=== PATIENT | male | born 1940 | race Caucasian/White ===

== ENCOUNTER 2016-12-09 10:21 | Observation (INO) | payer MEDICARE ==
[~2016-12-09] VITALS: Ht 172.7 cm; Wt 96.0 kg
[2016-12-09] VITALS (8 sets, daily range): BP systolic 119–146; BP diastolic 54–83; PULSE 53–62; RESP 16–26; O2SAT 97–100
[~2016-12-09 10:21] MED LIST: FLUT10SP NS
--- NOTE | 2016-12-09 10:23 | ED.REPORT ---
HPI-Trauma Minor / Fall Date of Service Dec 09, 2016 ED Provider: Dr. Hargrove The pt is a 76 y/o male with a hx of prostate cancer (s/p radiation; normal PCA3 since radiation) who presents to the ED via EMS due to confusion, onset an hour ago. When the EMS arrived, the pt had a syncopal episode with HR in 40s. He was given atropine en route. His blood sugar was in 140s. The pt was found by his lying on the couch with an occipital laceration. He told his that he was not feeling well and was confused. She went to the garage where he had been working and found a pool of blood. The pt could not recall today's events, including dressing in the morning or working in the garage. As per the , the pt was normal last night. However, he had complained of fatigue and went to bed earlier than usual. He had not reported headache at that time. In the ED, the pt reports confusion and is disoriented to place and time. He denies chest pain and abdominal pain. Nursing Notes Stated Complaint: HEAD INJURY Nursing Notes Reviewed: Yes Allergies: Coded Allergies: No Known Allergies (Verified Allergy, Unknown, 06/30/14) Miscellaneous Medications Fluticasone Furoate (Veramyst) 10 Gm Drake.susp 10 GM NS General Time Seen by MD: 10:25 Chief Complaint Other (confusion) Hx Obtained From: Spouse, Daughter, EMS Arrived By: Ambulance Onset Occurred: 1 - 4 hours ago Symptom Duration: Since onset Location: Head Quality: Painful Severity: Current: Mild Severity: Maximum: Mild Recent Healthcare: No recent doctor visit Similar Sx Previous: No Risk Factors )( TPA Administration/Criteria Stroke Thrombolytic Therapy : TPA Considered: No TPA Administered Intravenously: No, exclusion criteria NIH Stroke Scale Level of Consciousness: Not alert, arousable (1) Ask Month & Age: 0 questions right (2) Open/Close Eyes/Hand German Professor: Performs 1 task (1) Horizontal EO Movements: None (0) Visual Turner: No visual loss (0) Facial Palsy: Normal symmetry (0) Right Arm Motor Drift (10s): No drift 10 sec (0) Left Arm Motor Drift (10s): No drift 10 sec (0) Right Leg Motor Drift (5s): No drift 5 sec (0) Left Leg Motor Drift (5s): No drift 5 sec (0) Limb Ataxia FNF/Heel-Barron: Does not understand (0) Sensation (Arms/Legs/Face): No sensory loss (0) Language Aphasia: Can't ID materials (2) Dysarthria: Slurring intelligible (1) Extinction/Inattention: No exctinct/inattent (0) NIHSS Score: 7 Time NIHSS Performed: 10:40 Date NIHSS Performed: Dec 09, 2016 )( CVA Risk Stratification Age >60 Risk factors reviewed Past Medical History Past Medical History prostate cancer (s/p radiation) Past Surgical History none reported Smoking History Never Smoker Social History Alcohol Use: Denies alcohol use Drug Use: Denies drug use Other Social History: Good social support, Ambulatory Status Independent Review of Systems Reports: occipital laceration Neurologic: Reports: Confusion Complete sys rev & neg: except as marked. Cardiovascular: Denies: Chest pain GI: Denies: Abdominal pain Physical Exam Initial Vital Signs Vital Signs (First) Date Time Temp Pulse Resp B/P Pulse Ox O2 Delivery O2 Flow Rate FiO2 12/09/16 10:35 35 55 22 125/83 100 Room Air Initial VS: Reviewed Respiratory: Breath sounds normal, Clear to auscultation, No respiratory distress Cardiovascular: Regular rate & rhythm, Heart sounds normal, Intact distal pulses Abdomen / GI: Soft, Non-tender, No guarding, No rebound, No distention Extremities: Vascular intact, Neuro intact, No swelling, No tenderness Skin: Warm, Dry, No cyanosis Neurologic: Alert, Oriented, Nonfocal General/Constitutional: Awake, Alert Alertness: Positive: Confused Neck: No swelling Trauma - Neck Specific: Positive: Immobilized - C Collar Head / Eyes: Normocephalic, PERRL Hematoma to the left occiput with superficial looking laceration. Neurologic: No motor deficits, No sensory deficits Mental Status: Positive: Confused, Disoriented to place, Disoriented to time, Responds to painful stim, Responds to verbal stim Speech: Positive: Expressive aphasia (severe) moving all extremities. Interpretation & Diagnostics Lab Results Interpretation Result Diagram: 12/09/16 1045 12/09/16 1045 Test 12/09/16 10:45 White Blood Count 5.1th/mm3 (3.8-10.1) Red Blood Count 4.73mil/mm3 (4.40-5.80) Hemoglobin 14.6g/dL (13.8-17.2) Hematocrit 43.5% (41.0-50.0) Mean Corpuscular Volume 92.0fL (81-100) Mean Corpuscular Hemoglobin 30.9pg (27.0-35.0) Mean Corpuscular Hemoglobin Concent 33.6% (32.0-37.0) Red Cell Distribution Width 12.9% (12.3-15.4) Platelet Count 242bil/L (150-400) Neutrophils (%) (Auto) 54.7% (40-74) Lymphocytes (%) (Auto) 34.1% (14-46) Monocytes (%) (Auto) 7.3% (4-12) Eosinophils (%) (Auto) 2.9% (0-5) Basophils (%) (Auto) 0.8% (0-3) Prothrombin Time 10.6sec (8.1-12.5) Prothromb Time International Ratio 0.99ratio Activated Partial Thromboplast Time 24.7sec (22.8-33.0) Sodium Level 140mEq/L (134-144) Potassium Level 4.3mEq/L (3.5-5.2) Chloride Level 104mEq/L (97-108) Carbon Dioxide Level 22mmol/L (18-29) Blood Urea Nitrogen 13mg/dL (8-27) Creatinine 0.82mg/dL (0.76-1.27) Estimat Glomerular Filtration Rate 97mL/min (>59) Glucose Level 147mg/dL (60-99) Calcium Level 8.5mg/dL (8.5-10.1) Total Bilirubin 0.3mg/dL (0.0-1.2) Aspartate Amino Transf (AST/SGOT) 21U/L (0-50) Alanine Aminotransferase (ALT/SGPT) 25U/L (0-44) Alkaline Phosphatase 70U/L (25-160) Troponin T 0.010ug/L (0.0-0.011) Total Protein 6.0g/dL (6.4-8.4) Albumin 3.6g/dL (3.4-5.0) Triglycerides Level 242mg/dL (0-149) Cholesterol Level 237mg/dL (100-199) LDL Cholesterol, Calculated 145.600mg/dL (0-99) VLDL Cholesterol 48.400mg/dL HDL Cholesterol 43mg/dL (>39) Cholesterol/HDL Ratio 5.51 (0.0-4.4) Hold Zayas Top Tube Received (Received) Alcohols < 10mg/dL (0-10) ECG Interpretation ECG Interpretation: Normal sinus rhythm. Rate 55. Time: 11:03 Interpreted by: ED physician X-Ray Chest Interpretation Chest Xray Interpretation: IMPRESSION: Shallow inspiration causing bibasilar left greater than right atelectasis. Otherwise normal chest radiograph. Dictated by: Cory Stanton M.D. on 12/09/2016 at 10:53 Approved by: Cory Stanton M.D. on 12/09/2016 at 10:54 View: Portable, 1 view Interpretation / Wet Read by: Interpret - Radiologist CT Head Interpretation IMPRESSION: 1. No CT evidence of acute intracranial pathology. 2. Posterior scalp hematoma. Dictated by: Cory Stanton M.D. on 12/09/2016 at 11:16 Approved by: Cory Stanton M.D. on 12/09/2016 at 11:18 Study: Head CT no contrast Interpretation / Wet Read by: Interpret - Radiologist CT C-Spine Interpretation IMPRESSION: 1. No acute fractures or dislocations. 2. Lower cervical spine degenerative change. Dictated by: Cory Stanton M.D. on 12/09/2016 at 11:19 Approved by: Cory Stanton M.D. on 12/09/2016 at 11:21 Study type: CT no contrast Interpretation / Wet Read by: Interpret - Radiologist Procedures Laceration Management Laceration Management: 4 apolonia Time: 12:38 Procedure Performed by: ED physician Consent / Setup / Site Prep: Consent from spouse Location of Wound: Occiput Wound Length: 3 cm (Z-shaped laceration) Local Anesthesia: Lidocaine 1% Digital Block: No Debridement: None Foreign Body Explore / Removal: Explored for foreign body Post-Procedure / Complications: Antibiotic oint applied, Dressing applied, No complications, Condition improved, Tolerated procedure well, Patient stable Re-Eval/Medical Decision Med Decision/Clinical Course Patient presents with altered level of consciousness, last known normal last night before going to bed. He does have evidence of head injury and has an initial NH stroke scale of 7. Reportedly he also had a syncopal episode in the ambulance with a heart rate in the 40s and 1 mg of atropine. Patient continues to be amnestic to the days events however his speech has dramatically improved. Laceration to the back of the head was stapled. We will plan to admit the patient for the episode today. Unclear whether this was cardiogenic syncope, TIA, a CVA, or sequelae of head trauma or some other unknown known pathology. Re-Evaluation/Progress #1: Time of Eval: 10:35 Re-Evaluation/Progress Note: Talked to the pt's family. Discussed diagnosis and plan to admit. Pt's understands and agrees with the plan for admission. All questions addressed. Re-Evaluation/Progress #2: Time of Eval: 10:46 Re-Evaluation/Progress Note: Discussed the plan to not give the pt TPA. They understand and agree with the plan. All questions answered. Re-Evaluation/Progress #3: Time of Eval: 11:03 Patient Status: Condition improved Re-Evaluation/Progress Note: Rechecked pt. Discussed the lab and imaging results with the pt and his family. They understand. All questions answered. Consultation : Consulted With: Hospitalist Call Returned at: 12:19 Garment Folder: Will see patient, Agrees with eval, Agrees with plan, Accepts admit Counseled Regarding: Diagnosis, Lab results, Need for admission Discharge & Departure Impression: Primary Impression: Altered level of consciousness Additional Impression: Syncope Syncope type: unspecified Qualified Code: R55 - Syncope and collapse Disposition: ADMITTED TO HOSPITAL Referrals: All Rolon MD (PCP) Scribe Attestation Portions of this note were transcribed by Mackenzie Parry. I,, personally performed the history,physical exam and medical decision-making;I reviewed and confirmed the accuracy of the information in the transcribed note. Signed by Jude Ramos. 12/09/16 copies to: All Rolon MD, Timothy Smitha BARAJAS Dec 09, 2016 10:23 Mackenzie Parry Dec 09, 2016 10:40
[2016-12-09] MEDS ORDERED: 0.9% Sodium Chloride 1,000 ML IV ONE (10:32)
--- NOTE | 2016-12-09 10:55 | DRSVH ---
PROCEDURE: X-RAY CHEST ONE VIEW, PORTABLE ([id number]) INDICATIONS: ALOC, syncope TECHNIQUE: One view of the chest was acquired. COMPARISON: None. FINDINGS: Surgical changes and devices: None. Lungs and pleura: Shallow inspiration causes bibasilar left greater than right atelectasis. No defini te pleural effusions. No pneumothoraces. Mediastinum: Mediastinal contours appear normal. Heart size is normal. Bones and chest wall: No suspicious bony lesions. Overlying soft tissues appear unremarkable. IMPRESSION: Shallow inspiration causing bibasilar left greater than right atelectasis. Otherwise norm al chest radiograph. Dictated by: Cory Stanton M.D. on 12/09/2016 at 10:53 Approved by: Cory Stanton M.D. on 12/09/2016 at 10:54
--- NOTE | 2016-12-09 11:20 | DRSVH ---
PROCEDURE: CT BRAIN WITHOUT CONTRAST ([id number]) INDICATIONS: Stroke TECHNIQUE: Noncontrast 4.5 mm thick angled axial sections acquired from the foramen magnum to the vertex, with c oronal reformats. COMPARISON: None. FINDINGS: Image quality: Excellent. CSF spaces: Basal cisterns are patent. No extra-axial fluid collections. Ventricles are normal in size and shape. Brain: No midline shift. No intracranial masses or hemorrhage. Fam-white matter interface is norm al. Skull and face: Calvarium and visualized facial bones are intact, without suspicious lesions. Left posterior scalp hematoma. Sinuses: Maxillary sinus mucosal thickening otherwise visualized sinuses and mastoids are clear. IMPRESSION: 1. No CT evidence of acute intracranial pathology. 2. Posterior scalp hematoma. Dictated by: Cory Stanton M.D. on 12/09/2016 at 11:16 Approved by: Cory Stanton M.D. on 12/09/2016 at 11:18
--- NOTE | 2016-12-09 11:22 | DRSVH ---
PROCEDURE: CT CERVICAL SPINE WITHOUT CONTRAST ([id number]) INDICATIONS: Stroke TECHNIQUE: Noncontrast 3 mm thick sections acquired from the skull base to the T4 level. Sagittal and coronal r eformats were then constructed. For radiation dose reduction, the following was used: automated exp osure control, adjustment of mA and/or kV according to patient size. COMPARISON: None. FINDINGS: Image quality: Excellent. Bones: No fractures or dislocations. Intervertebral body disc height loss and osteophyte formation c onsistent with generative change greatest at C6-7. Visualized superior ribs are intact. Soft tissues: Prevertebral soft tissues are normal in thickness. No paravertebral hematomas. No ap ical pneumothoraces. IMPRESSION: 1. No acute fractures or dislocations. 2. Lower cervical spine degenerative change. Dictated by: Cory Stanton M.D. on 12/09/2016 at 11:19 Approved by: Cory Stanton M.D. on 12/09/2016 at 11:21
[2016-12-09 11:45] LABS: BASOPHILS % (AUTO) 0.8 % (0-3); EOSINOPHILS % (AUTO) 2.9 % (0-5); MONOCYTES % (AUTO) 7.3 % (4-12); Mean Corpuscular Hemoglobin 30.9 pg (27.0-35.0); NEUTROPHILS % (AUTO) 54.7 % (40-74); Platelet Count 242 bil/L (150-400)
[2016-12-09 11:47] LABS: INR 0.99 ratio
[2016-12-09] MEDS ORDERED: Ondansetron 2 mg/mL 2 mL Inj IVPUSH PRN (12:20)
--- NOTE | 2016-12-09 12:26 | NUR ---
Evaluation completed. Please go to "Notes" then click on "Assessments and Notes" (bottom left corner of screen). Then select appropriate discipline tab on top of screen.
[2016-12-09 12:53] LABS: APPEARANCE,URINE HAZY (CLEAR,HAZY); COLOR,URINE YELLOW (YELLOW); OCCULT BLOOD,URINE NEGATIVE (NEGATIVE); PH,URINE 8.5 (5.0-8.0); UROBILINOGEN,URINE NORMAL (NORMAL)
[2016-12-09] MEDS ORDERED: cefTRIAXone Inj 1,000 MG in Dextrose 5% Minibag Plus 50 ML IV ONE (12:55)
--- NOTE | 2016-12-09 14:04 | NUR ---
Admission Pt arrived to [facility] Rm 3027 from MRI via wheelchair. Alert to self and . VSS. IV saline locked. Pt able to transfer self from wheel chair to bed, gait is slightly unsteady. Pt has a laceration to the back of the head, that has been stapled. No complains of increased pain. Pt remains confused to what brought him to the hospital. and daughter at bedside assisting with admission questions.
[2016-12-09] MEDS ORDERED: cefTRIAXone Inj 2,000 MG in Dextrose 5% Minibag Plus 50 ML IV SCH (14:15)
--- NOTE | 2016-12-09 14:35 | DRSVH ---
PROCEDURE: MRI STROKE PROTOCOL ([id number]) Pre- and post-contrast brain MRI, non-contrast brain MR angiogram, pre- and postcontrast neck MR zelalem ogram INDICATIONS: r/o CVA TIA TECHNIQUE: Brain: Noncontrast axial T1 spin echo, axial T2 fast spin echo, sagittal and axial FLAIR, coronal T2 fast spin echo, axial gradient echo, axial diffusion and ADC through the brain. After the administr ation of contrast, axial 3D VIBE of the cranial vasculature and brain. Brain MRA: Non-contrast 3-D time of flight MR angiogram, with multiple sjrelbh-lejrvilej-wvujtiltxh (MIP) reformats performed. Neck MRA: Axial and sagittal TruFISP through the neck. Coronal dynamic MR angiogram during administ ration of contrast in the arterial and venous phases, with 3-dimenstional roppexm-kuounalpw-fuxmszriu n (MIP) reformats constructed from subtraction images. COMPARISON: [facility], CT, CT BRAIN WO CON, 12/09/2016, 10:51. FINDINGS: Image quality: Excellent. BRAIN: CSF spaces: Ventricles are normal in size and shape. Basal cisterns are patent. No extra-axial flu id collections. Brain: No intracranial bleeds or mass effects. Fam-white matter interface is normal. Diffusion we ighted images show no acute ischemic insults. Brainstem appears normal. Normal intravascular flow v oids are present. No abnormal intracranial enhancement. Skull and face: There is redemonstration a left posterior scalp hematoma. Calvarial marrow signal is normal. Orbits appear normal. Sinuses: There is minimal bilateral maxillary sinus mucosal thickening. The mastoid air cells appear clear. BRAIN MR ANGIOGRAM: Anterior circulation: Intracranial internal carotid arteries are normal in size and enhancement. Th e flow within the paired anterior cerebral arteries is normal and symmetric. The flow within the mid dle cerebral arteries is normal and symmetric. The anterior communicating artery is seen. No stenos es, occlusions, or aneurysms. Posterior circulation: The visualized portions of the vertebral arteries demonstrate normal caliber, and join to form a normal appearing basilar artery. The flow within the posterior cerebral arteries is normal and symmetric. No stenoses, occlusions, or aneurysms. NECK MR ANGIOGRAM: Carotids: Great vessels demonstrate a conventional anatomy as they arise from the aortic arch. The origins of the common carotid arteries appear patent. The calibers and courses of both common caroti d arteries are normal. The bifurcation regions appear normal bilaterally. The internal carotid yunior esther demonstrate normal course and caliber. Posterior circulation: The origins of the vertebral arteries appear patent. Diffuse narrowing of the right V4 segment however appears patent. The basilar artery appears unremarkable. Miscellaneous: Subclavian arteries appear patent. Pre-contrast images through the neck show no soft tissue abnormalities. IMPRESSION: BRAIN MRI: No evidence of acute ischemia. Left posterior scalp hematoma as before. Mild bilateral maxillary sinus mucosal thickening BRAIN MR ANGIOGRAM: Negative examination as above. NECK MR ANGIOGRAM: Mild diffuse narrowing of the right V4 segment, without focal stenosis or occlusio n. No ICA stenosis. The estimate of stenosis included in the report of the imaging study was calculated using the NASCET method Dictated by: He Sabillon M.D. on 12/09/2016 at 14:25 Approved by: He Sabillon M.D. on 12/09/2016 at 14:34
--- NOTE | 2016-12-09 15:02 | PCM.HPMED ---
Subjective Date of Service Dec 09, 2016 Primary Provider: Admitting Physician: Kyle Sinclair MD Primary Care Physician: Gian Attending Physician: Kyle Sinclair MD Chief Complaint: confusion, head trauma History of Present Illness: 76-year-old male with no past medical history except prostate cancer in 2012 averaging a geraldine states that post radiation therapy, recent PSA was normal by PCP presented after unknown head trauma, confusion. As per the family, patient was found on the sulfa with head laceration at the occipital area. Upon questioning patient was very confused, did not remember what exactly happened. Of note, there are pulls of blocked side of the garage, indicating that patient fell likely on the driveway. Patient does remember how and what happened. As per , patient complain of more fatigue yesterday, had to go to the bathroom 3 times overnight for urination which is normal for him. Patient otherwise was usual state of health, maintaining an active lifestyle, denied having any similar episode in the past. Patient is following primary doctor regularly. Last seen by PCP around August, there was no issues regarding his health, currently not taking any medicine including dkbw-[id number]-[id number] medicine. Of note, in route to the hospital, patient had bradycardic to the 40s, was given atropin by EMS ROS: Denied recent fever, chills, cough, sputum, urinary frequency, urgency, hematuria, abdominal pain, nausea, vomiting, diarrhea, constipation, sick contact, runny nose, travel ED VS blood pressure were stable 120s, charisse to 50s, afebrile, 100% on RA. Review of Systems: Pertinent positives as noted in history of present illness. All other systems were reviewed and are negative Allergies Coded Allergies: No Known Allergies (Verified Allergy, Unknown, 06/30/14) Home Medications Not taking any medicine PMH No past medical history except prostate cancer Surgical History No surgery Family History No family medical history premature , CAD Social History Hx Alcohol Use: Yes (rarely) Hx Substance Use: No Hx Tobacco Use: No Smoking Status: Never Smoker Additional Information lives with Exam Vital Signs Vital Sign - Last Date Time Temp Pulse Resp B/P Pulse Ox O2 Delivery O2 Flow Rate FiO2 12/09/16 11:52 53 26 129/64 99 Room Air 12/09/16 10:35 35 Exam NAD, comfortably laying down on the bed no JVD, MMM, no LAD RRR, nl s1, s2 no mrg CTAB, no w,c S,ND,NT,normoactive BS+ warm, no edema, pulses 2/2 Neuro:speech coherent, fluent, AAOx3 gait steady PERRLA, EOMI, symmetric face, no uvulae tongue deviation, able shrug shoulders equally able rotate neck equally on both sides FTN, dysdiadochokinesia intact, romberg negative, no pronator drift motor 5/5 throughout, sensory intact to dull touch Lab and Diagnostics Result Diagram: 12/09/16 1045 12/09/16 1045 X-Rays, CTs and MRIs PROCEDURE: CT BRAIN WITHOUT CONTRAST ([id number]) INDICATIONS: Stroke TECHNIQUE: Noncontrast 4.5 mm thick angled axial sections acquired from the foramen magnum to the vertex, with coronal reformats. COMPARISON: None. FINDINGS: Image quality: Excellent. CSF spaces: Basal cisterns are patent. No extra-axial fluid collections. Ventricles are normal in size and shape. Brain: No midline shift. No intracranial masses or hemorrhage. Fam-white matter interface is normal. Skull and face: Calvarium and visualized facial bones are intact, without suspicious lesions. Left posterior scalp hematoma. Sinuses: Maxillary sinus mucosal thickening otherwise visualized sinuses and mastoids are clear. IMPRESSION: 1. No CT evidence of acute intracranial pathology. 2. Posterior scalp hematoma. Dictated by: Cory Stanton M.D. on 12/09/2016 at 11:16 Approved by: Cory Stanton M.D. on 12/09/2016 at 11:18 PROCEDURE: MRI STROKE PROTOCOL ([id number]) Pre- and post-contrast brain MRI, non-contrast brain MR angiogram, pre- and postcontrast neck MR angiogram INDICATIONS: r/o CVA TIA TECHNIQUE: Brain: Noncontrast axial T1 spin echo, axial T2 fast spin echo, sagittal and axial FLAIR, coronal T2 fast spin echo, axial gradient echo, axial diffusion and ADC through the brain. After the administration of contrast, axial 3D VIBE of the cranial vasculature and brain. Brain MRA: Non-contrast 3-D time of flight MR angiogram, with multiple maximum- intensity-projection (MIP) reformats performed. Neck MRA: Axial and sagittal TruFISP through the neck. Coronal dynamic MR angiogram during administration of contrast in the arterial and venous phases, with 3-dimenstional plmdwgm-frpvwevxz-mwgcgfvbvw (MIP) reformats constructed from subtraction images. COMPARISON: [facility], CT, CT BRAIN WO CON, 12/09/2016, 10:51. FINDINGS: Image quality: Excellent. BRAIN: CSF spaces: Ventricles are normal in size and shape. Basal cisterns are patent. No extra-axial fluid collections. Brain: No intracranial bleeds or mass effects. Fam-white matter interface is normal. Diffusion weighted images show no acute ischemic insults. Brainstem appears normal. Normal intravascular flow voids are present. No abnormal intracranial enhancement. Skull and face: There is redemonstration a left posterior scalp hematoma. Calvarial marrow signal is normal. Orbits appear normal. Sinuses: There is minimal bilateral maxillary sinus mucosal thickening. The mastoid air cells appear clear. BRAIN MR ANGIOGRAM: Anterior circulation: Intracranial internal carotid arteries are normal in size and enhancement. The flow within the paired anterior cerebral arteries is normal and symmetric. The flow within the middle cerebral arteries is normal and symmetric. The anterior communicating artery is seen. No stenoses, occlusions, or aneurysms. Posterior circulation: The visualized portions of the vertebral arteries demonstrate normal caliber, and join to form a normal appearing basilar artery. The flow within the posterior cerebral arteries is normal and symmetric. No stenoses, occlusions, or aneurysms. NECK MR ANGIOGRAM: Carotids: Great vessels demonstrate a conventional anatomy as they arise from the aortic arch. The origins of the common carotid arteries appear patent. The calibers and courses of both common carotid arteries are normal. The bifurcation regions appear normal bilaterally. The internal carotid arteries demonstrate normal course and caliber. Posterior circulation: The origins of the vertebral arteries appear patent. Diffuse narrowing of the right V4 segment however appears patent. The basilar artery appears unremarkable. Miscellaneous: Subclavian arteries appear patent. Pre-contrast images through the neck show no soft tissue abnormalities. IMPRESSION: BRAIN MRI: No evidence of acute ischemia. Left posterior scalp hematoma as before. Mild bilateral maxillary sinus mucosal thickening BRAIN MR ANGIOGRAM: Negative examination as above. NECK MR ANGIOGRAM: Mild diffuse narrowing of the right V4 segment, without focal stenosis or occlusion. No ICA stenosis. The estimate of stenosis included in the report of the imaging study was calculated using the NASCET method Dictated by: He Sabillon M.D. on 12/09/2016 at 14:25 Approved by: He Sabillon M.D. on 12/09/2016 at 14:34 Assessment & Plan Acute, active Acute encephalopathy likely due to brain conccusion after head trauma, fall, initial CT head was normal for bleeding, NIHSS 7 per ED provider. MR stroke protocol was also unremarkable for stroke. Patient does not have any risk factor for TIA except his age. Simply her what the initial trigger made him fall, possible UTI given UA+, cardiac arrhythmias despite no cardiac disease. -Patient is mental status rapidly improved to his baseline, non focal on neurologic exam, still has transient amnesia regarding the event -Frequent neuro checks every 4 hours -awaits limited TTE, rule out valvular dz, LV function -hydrate with [id number] sinus bradycardia, POA, unclear etiology, currently asymptomatic, s/p atropin in EMS. EKG no av block, pauses. labs showed first trop neg -monitor on telemetry, awaits TTE probable UTI, POA, UA+, pt has baseline voiding difficulties, frequent urination s/p prostate CA radiotx -start CFX 2g qd, awaits UCX, monitor fever curve, wbc, pct Chronic, stable prostat CA s/p radiotx, stable, FU with Urology, PCP Dispo: Patient is admitted under observation status with expectation that she will be discharged within 24-48 hours, diet:general dvt ppx:SCD Full code Time spent 65 minutes Kyle Sinclair MD Dec 09, 2016 12:30
[2016-12-10 00:42] VITALS: BP 119/56; PULSE 58; RESP 16; O2SAT 97
[2016-12-10 05:32] VITALS: BP 133/77; PULSE 62; RESP 18; O2SAT 96
--- NOTE | 2016-12-10 06:34 | NUR ---
NOC/Assume of care Assume of care from previous RN. Pt has been alert and oriented. Pleasant and cooperative with care. Denies head pain. Ramsey dry and intact on left occipital area. Neuro VS noted no significant findings. Hourly rounding done.
[2016-12-10 06:46] VITALS: BP_SYST 122; BP_SYST 154; BP_SYST 161; BP_DIAS 69; BP_DIAS 88; BP_DIAS 89
[2016-12-10 07:40] VITALS: BP_SYST 125; BP_SYST 129; BP_SYST 144; BP_DIAS 64; BP_DIAS 68; BP_DIAS 79
[2016-12-10 07:41] LABS: Mean Corpuscular Volume 93.3 fL (81-100)
[2016-12-10 07:42] LABS: BASOPHILS % (AUTO) 0.3 % (0-3); EOSINOPHILS % (AUTO) 2.4 % (0-5); MONOCYTES % (AUTO) 10.8 % (4-12); Mean Corpuscular Hemoglobin 31.3 pg (27.0-35.0); NEUTROPHILS % (AUTO) 57.7 % (40-74); Platelet Count 215 bil/L (150-400)
--- NOTE | 2016-12-10 10:04 | NUR ---
Evaluation completed. Please go to "Notes" then click on "Assessments and Notes" (bottom left corner of screen). Then select appropriate discipline tab on top of screen.
[2016-12-10 10:14] VITALS: PULSE 61
--- NOTE | 2016-12-10 11:05 | NUR ---
Case Management: HINOJOSA and Medicare Part D pamphlet delivered and explained to patient and spouse at bedside. Signed original placed in chart. Copy left at bedside. Romina Huston RN
--- NOTE | 2016-12-10 11:54 | DRSVH ---
[facility] [address] [place] [address] Echocardiogram Report Name: VANNESSA SAUCEDO Date: 12/10/2016 Height: 68 in Hospital Exam Location: [facility] Weight: 21 2 lb Gender: Male BSA: 2.1 m2 : 1940 Age: 76 yrs BP: 129/79 mmHg Reason For Study: BRADYCARDIA/POSSIBLE CVA Ordering Physician: LUCILLE RUIZ Performed By: Aim Kumari Referring Physician: [facility] Interpret[facility] Summary The left ventricle is normal in size. The left ventricular ejection fraction is normal. The left atrium is moderately dilated. There is no Doppler evidence for an interatrial shunt. There is trace mitral regurgitation. Procedure: A two-dimensional transthoracic echocardiogram with color flow and Doppler was performed. There is no prior echocardiogram noted for this patient. The study quality was technically difficult. The patient was in sinus bradycardia with heart rates between 52 and 60 bpm during the exam. Left Ventricle: The left ventricle is normal in size. The left ventricular ejection fraction is normal. The ejection fraction is estimated to be 55-60%. There are no obvious focal wall motion abnormalities noted but poor endocardial definition reduces the sensitivity for the detection of such. Assessment of diastolic parameters indicates a relaxation abnormality of the left ventricle, consistent with normal filling pressures. Right Ventricle: The right ventricle is normal in size and function. Atria: The left atrium is moderately dilated. The right atrium is borderline dilated. There is no Doppler evidence for an interatrial shunt. Mitral Valve: The mitral valve is normal. There is trace mitral regurgitation. Aortic Valve: The aortic valve is trileaflet. The aortic valve is slightly calcified. There is mild aortic valve sclerosis. The aortic valve opens well. No aortic regurgitation is present. Tricuspid Valve: The tricuspid valve is normal. There is trace tricuspid regurgitation. The right ventricular systolic pressure is estimated at least 25 mmHg assuming a right atrial pressure of 3 mm Hg. Pulmonic Valve: The pulmonic valve leaflets are thin and pliable; valve motion is normal. There is trace pulmonic regurgitation. Great Vessels: The aortic root is normal size. The ascending aorta is mildly enlarged. The aortic arch is mildly enlarged. The pulmonary artery is not well visualized, but is probably normal size. The IVC is of normal diameter and collapses greater than 50% with a sniff. This suggests a low right atrial pressure of 3 mm Hg. Pericardium/ Pleura There is no pericardial effusion. There is no pleural effusion. MMode/2D Measurements & Calculations LVIDd: 4.8 cm RA long axis LVOT diam: 2.4 cm LVIDs: 3.2 cm LA A2 area: 24.6 cm AoV Opening FS: 34.1 % LA A4 area: 23.6 cm RA area EPSS: 0.30 cm LA length (vol) Ao root diam IVSd: 1.2 cm : 21.2 cm LVPWd: 0.89 cm LA vol: 100.4 ml RA vol asc Aorta Diam LA vol index : 68.0 ml RA Ao Arch Diam (Prox : 32.5 mm2 Trans): 3.4 cm IVC diam: 2.0 cm LV simpson. diameter/BSA LV sys. diameter/BSA (cm/m^2): 2.3 (cm/m^2): 1.5 Doppler Measurements & Calculations Ao V2 max MV E max rich MV E/A: 1.2 TR max rich : 114.8 cm/sec : 62.2 cm/sec Med Peak E' Rich : 236.2 cm/sec Ao max PG MV A max rich TR max PG : 5.3 mmHg : 50.6 cm/sec E/E' med: 7.2 : 22.3 mmHg Ao mean PG MV P1/2t: 65.0 msec Lat Peak E' Rich PA V2 max : 109.9 cm/sec LVOT Max Rich E/E' lat: 7.2 PA mean PG : 100.4 cm/sec E/e' average: 7.2 PA Accel Time LIBBY(I,D): 3.7 cm : 0.06 sec sev ratio MV dec time MV P1/2t max rich Ao V2 mean LV V1 max PG : 0.22 sec : 88.0 cm/sec MVA(P1/2t): 3.4 cm2 Ao V2 VTI: 25.0 cmLV V1 VTI LIBBY(V,D): 3.9 cm2 : 20.7 cm PA V2 mean LIBBY indexed to BSA : 80.1 cm/sec (cm^2/m^2): 1.8 Electronically signed by: Sharan Feldman on Reading Physician:12/10/2016 11:53 AM
[2016-12-10 13:26] VITALS: BP 137/67; PULSE 62; RESP 18; O2SAT 95
--- NOTE | 2016-12-10 13:47 | PCM.DIMED ---
Discharge Instructions Date of Service Dec 10, 2016 Dates of Hospitalization Dec 09, 2016 at 12:21 Discharge Diagnosis Discharge Diagnosis acute dx Acute encephalopathy, transient amnesia likely due to brain conccusion after head trauma, fall, asymptomatic sinus bradycardia asymptomatic bacteriuria, Chronic dx prostat CA s/p radiotx Diet Discharge Diet: Low fat, Low Sodium, Heart Healthy Patient Instructions Patient Instructions You were hospitalized with acute confusion, likely resulted from concussion secondary to fall. Work-ups in the hospital didn't show any evidence of stroke, seizure, bleeding, heart disease. You were monitored closely and mental status returned to normal. Please note that we arranged appointment with new doctor for follow up. Please follow up in 1week As we discussed, you were recommended to take aspirin and statin. Please have more discussion with future provider. Follow-up Provider: [facility] Follow-up with PCP in: 1 week Kyle Sinclair MD Dec 10, 2016 09:30
--- NOTE | 2016-12-10 14:21 | NUR ---
Social Work-initial assessment/ discharge: Data:See initial assessment. Pt is a 76 y/o male who was admitted on 12/09/16 for ALOC per H&P. Pt's insurance is [facility] and PCP is not listed. EMR Reviewed. Pt resides at home with his where he remains independent with ADLS. Pt drives and does not use any DME. Pt has no HH or SNF history. Pt has no snf care insurance or VA benefits. SW discussed DPOA/ advanced directive, this has been completed, encouraged a copy to be brought in. PT/OT have cleared pt for home no needs. Pt's family to provide transport home today. No concerned noted for pt's capacity for self care per RN or MD, discharge planning checklist provided. No discharge needs identified. All updated and agreeable to plan. Assessment:pt who is independent at baseline. Plan:Pt to discharge home today via POV. No discharge needs identified. All updated and agreeable to plan. JUAN CARLOS Mcneil Addendum: 12/10/16 at 1427 by RUSSELL ARCOS Amended: Links added.
--- NOTE | 2016-12-10 14:59 | NUR ---
Discharge Pt d/c home with and daughter at 1440. Pt denied having pain. VSS. IV d/cd prior to leaving. All personal belongings left with pt. Discharge info discussed with pt, encourage to f/u with PCP office or residency clinic-PCP relocated recently. Number to residency clinic provided. Wound on L posterior scalp cleaned with NS prior to discharge. Instruction provided re care of wound/4 apolonia.
--- NOTE | 2016-12-10 15:00 | PCM.DC.MED ---
Discharge Summary Date of Service Dec 10, 2016 Dates of Hospitalization Date of Hospital Admission Dec 09, 2016 at 12:21 Date of Discharge: Dec 10, 2016 Providers: Admitting Physician: Kyle Ruiz MD Primary Care Physician: Gian Attending Physician: Kyle Ruiz MD Diagnosis at Time of Discharge Diagnosis at Time of Discharge acute dx Acute encephalopathy, transient amnesia likely due to brain conccusion after head trauma, fall, asymptomatic sinus bradycardia asymptomatic bacteriuria, Chronic dx prostat CA s/p radiotx Procedures XRay, CTs & MRIs PROCEDURE: CT BRAIN WITHOUT CONTRAST ([id number]) INDICATIONS: Stroke TECHNIQUE: Noncontrast 4.5 mm thick angled axial sections acquired from the foramen magnum to the vertex, with coronal reformats. COMPARISON: None. FINDINGS: Image quality: Excellent. CSF spaces: Basal cisterns are patent. No extra-axial fluid collections. Ventricles are normal in size and shape. Brain: No midline shift. No intracranial masses or hemorrhage. Fam-white matter interface is normal. Skull and face: Calvarium and visualized facial bones are intact, without suspicious lesions. Left posterior scalp hematoma. Sinuses: Maxillary sinus mucosal thickening otherwise visualized sinuses and mastoids are clear. IMPRESSION: 1. No CT evidence of acute intracranial pathology. 2. Posterior scalp hematoma. Dictated by: Cory Stanton M.D. on 12/09/2016 at 11:16 Approved by: Cory Stanton M.D. on 12/09/2016 at 11:18 PROCEDURE: MRI STROKE PROTOCOL ([id number]) Pre- and post-contrast brain MRI, non-contrast brain MR angiogram, pre- and postcontrast neck MR angiogram INDICATIONS: r/o CVA TIA TECHNIQUE: Brain: Noncontrast axial T1 spin echo, axial T2 fast spin echo, sagittal and axial FLAIR, coronal T2 fast spin echo, axial gradient echo, axial diffusion and ADC through the brain. After the administration of contrast, axial 3D VIBE of the cranial vasculature and brain. Brain MRA: Non-contrast 3-D time of flight MR angiogram, with multiple maximum- intensity-projection (MIP) reformats performed. Neck MRA: Axial and sagittal TruFISP through the neck. Coronal dynamic MR angiogram during administration of contrast in the arterial and venous phases, with 3-dimenstional xkzmwbn-zorukmdia-zalynapsvp (MIP) reformats constructed from subtraction images. COMPARISON: [facility], CT, CT BRAIN WO CON, 12/09/2016, 10:51. FINDINGS: Image quality: Excellent. BRAIN: CSF spaces: Ventricles are normal in size and shape. Basal cisterns are patent. No extra-axial fluid collections. Brain: No intracranial bleeds or mass effects. Fam-white matter interface is normal. Diffusion weighted images show no acute ischemic insults. Brainstem appears normal. Normal intravascular flow voids are present. No abnormal intracranial enhancement. Skull and face: There is redemonstration a left posterior scalp hematoma. Calvarial marrow signal is normal. Orbits appear normal. Sinuses: There is minimal bilateral maxillary sinus mucosal thickening. The mastoid air cells appear clear. BRAIN MR ANGIOGRAM: Anterior circulation: Intracranial internal carotid arteries are normal in size and enhancement. The flow within the paired anterior cerebral arteries is normal and symmetric. The flow within the middle cerebral arteries is normal and symmetric. The anterior communicating artery is seen. No stenoses, occlusions, or aneurysms. Posterior circulation: The visualized portions of the vertebral arteries demonstrate normal caliber, and join to form a normal appearing basilar artery. The flow within the posterior cerebral arteries is normal and symmetric. No stenoses, occlusions, or aneurysms. NECK MR ANGIOGRAM: Carotids: Great vessels demonstrate a conventional anatomy as they arise from the aortic arch. The origins of the common carotid arteries appear patent. The calibers and courses of both common carotid arteries are normal. The bifurcation regions appear normal bilaterally. The internal carotid arteries demonstrate normal course and caliber. Posterior circulation: The origins of the vertebral arteries appear patent. Diffuse narrowing of the right V4 segment however appears patent. The basilar artery appears unremarkable. Miscellaneous: Subclavian arteries appear patent. Pre-contrast images through the neck show no soft tissue abnormalities. IMPRESSION: BRAIN MRI: No evidence of acute ischemia. Left posterior scalp hematoma as before. Mild bilateral maxillary sinus mucosal thickening BRAIN MR ANGIOGRAM: Negative examination as above. NECK MR ANGIOGRAM: Mild diffuse narrowing of the right V4 segment, without focal stenosis or occlusion. No ICA stenosis. The estimate of stenosis included in the report of the imaging study was calculated using the NASCET method Dictated by: He Sabillon M.D. on 12/09/2016 at 14:25 Approved by: He Sabillon M.D. on 12/09/2016 at 14:34 Cardiac Echo Impression Echocardiogram Report Name: LEWIS, VANNESSA EStudy Date: 12/10/2016 Height: 68 in Hospital Exam Location: [facility] Weight: 21 2 lb Gender: Male BSA: 2.1 m2 : 1940 Age: 76 yrs BP: 129/79 mmHg Reason For Study: BRADYCARDIA/POSSIBLE CVA Ordering Physician: KYLE RUIZ Performed By: Ami Kumari Referring Physician: Dustin Alcaraz Interpretation Summary The left ventricle is normal in size. The left ventricular ejection fraction is normal. The left atrium is moderately dilated. There is no Doppler evidence for an interatrial shunt. There is trace mitral regurgitation. Brief History HPI obtained on 12/09 76-year-old male with no past medical history except prostate cancer in 2012 averaging a geraldine states that post radiation therapy, recent PSA was normal by PCP presented after unknown head trauma, confusion. As per the family, patient was found on the sulfa with head laceration at the occipital area. Upon questioning patient was very confused, did not remember what exactly happened. Of note, there are pulls of blocked side of the garage, indicating that patient fell likely on the driveway. Patient does remember how and what happened. As per , patient complain of more fatigue yesterday, had to go to the bathroom 3 times overnight for urination which is normal for him. Patient otherwise was usual state of health, maintaining an active lifestyle, denied having any similar episode in the past. Patient is following primary doctor regularly. Last seen by PCP around August, there was no issues regarding his health, currently not taking any medicine including fobk-fco-andprac medicine. Of note, in route to the hospital, patient had bradycardic to the 40s, was given atropin by EMS ROS: Denied recent fever, chills, cough, sputum, urinary frequency, urgency, hematuria, abdominal pain, nausea, vomiting, diarrhea, constipation, sick contact, runny nose, travel ED VS blood pressure were stable 120s, charisse to 50s, afebrile, 100% on RA. Hospital Course Brief hospital course, Pt was admitted given acute onset amnesia after probable episode of fall based on head trauma. pt underwent w/u to rule out stroke, CTH/telemetry/MR stroke protocol/TTE all unremarkable. Although pt had bradycardia 40s reportedly en route to hospital, HR remained above 50 to 60s, remained asymptomatic, no pauses /high degree blocks on telemetry. Given high LDL, ASCVD 10risks 24%, pt was recommended aspirin, high-intensity statin, but wanted to discuss further in the future with PCP. Given his PCP retired, pt was referred to [facility] to establish care for d/c follow up. There was mild suspicion of UTI with positive UA however , given no symptoms, pt only received one dose of Ceftriaxone and stopped. Acute, active Acute encephalopathy likely due to brain conccusion after head trauma, fall, initial CT head was normal for bleeding, NIHSS 7 per ED provider. MR stroke protocol was also unremarkable for stroke. Patient does not have any risk factor for TIA except his age. Simply her what the initial trigger made him fall, possible UTI given UA+, cardiac arrhythmias despite no cardiac disease. -Patient is mental status rapidly improved to his baseline, non focal on neurologic exam, still has transient amnesia regarding the event -Frequent neuro checks every 4 hours -awaits limited TTE, rule out valvular dz, LV function -hydrate with [id number]/hr sinus bradycardia, POA, unclear etiology, currently asymptomatic, s/p atropin in EMS. EKG no av block, pauses. labs showed first trop neg -monitor on telemetry, awaits TTE probable UTI, POA, UA+, pt has baseline voiding difficulties, frequent urination s/p prostate CA radiotx -start CFX 2g qd, awaits UCX, monitor fever curve, wbc, pct Chronic, stable prostat CA s/p radiotx, stable, FU with Urology, PCP Dispo: Patient is admitted under observation status with expectation that she will be discharged within 24-48 hours, diet:general dvt ppx:SCD Full code Exam Vital Signs (Last) Date Time Temp Pulse Resp B/P Pulse Ox O2 Delivery O2 Flow Rate FiO2 12/10/16 13:26 36.7 62 18 137/67 95 Room Air Exam pt was examined on the day of d/c Test 12/09/16 10:45 12/09/16 12:28 12/09/16 15:03 12/10/16 06:40 Prothrombin Time 10.6sec (8.1-12.5) Prothromb Time International Ratio 0.99ratio Activated Partial Thromboplast Time 24.7sec (22.8-33.0) Hemoglobin A1c 5.8% (4.8-5.6) Troponin T 0.010ug/L (0.0-0.011) Triglycerides Level 242mg/dL (0-149) Cholesterol Level 237mg/dL (100-199) LDL Cholesterol, Calculated 145.600mg/dL (0-99) VLDL Cholesterol 48.400mg/dL HDL Cholesterol 43mg/dL (>39) Cholesterol/HDL Ratio 5.51 (0.0-4.4) Hold Zayas Top Tube Received (Received) Alcohols < 10mg/dL (0-10) Urine Color Yellow (YELLOW) Urine Appearance Hazy (CLEAR,HAZY) Urine pH 8.5 (5.0-8.0) Urine Specific [place] 1.013 (1.003-1.035) Urine Protein Negativemg/dL (NEG,TRACE) Urine Glucose (UA) Negativemg/dL (NEGATIVE) Urine Ketones Negativemg/dL (NEGATIVE) Urine Occult Blood Negative (NEGATIVE) Urine Nitrite Positive (NEGATIVE) Urine Bilirubin Negative (NEGATIVE) Urine Urobilinogen Normalmg/dL (NORMAL) Urine Leukocyte Esterase Moderate (NEGATIVE) Urine RBC 0-2/hpf (0-2) Urine WBC >50/hpf (0-5) Urine Epithelial Cells Few/hpf (NONE-MOD) Urine Crystals None seen (NONE SEEN) Urine Bacteria Many/hpf (NONE-FEW) Urine Hyaline Casts None/lpf (NONE) Urine Granular Casts None seen (NONE SEEN) Urine Waxy Casts None seen (NONE SEEN) Urine Red Blood Cell Casts None seen (NONE SEEN) Urine White Blood Cell Casts None seen (NONE SEEN) Urine Mucus None seen (None Seen) Urine Trichomonas None seen (NONE SEEN) Urine Yeast None (NONE SEEN) Urinalysis Comment None Urine Culture Reflexed Indicated Total Creatine Kinase 51U/L (21-232) White Blood Count 8.7th/mm3 (3.8-10.1) Red Blood Count 4.51mil/mm3 (4.40-5.80) Hemoglobin 14.1g/dL (13.8-17.2) Hematocrit 42.1% (41.0-50.0) Mean Corpuscular Volume 93.3fL (81-100) Mean Corpuscular Hemoglobin 31.3pg (27.0-35.0) Mean Corpuscular Hemoglobin Concent 33.5% (32.0-37.0) Red Cell Distribution Width 13.2% (12.3-15.4) Platelet Count 215bil/L (150-400) Neutrophils (%) (Auto) 57.7% (40-74) Lymphocytes (%) (Auto) 28.7% (14-46) Monocytes (%) (Auto) 10.8% (4-12) Eosinophils (%) (Auto) 2.4% (0-5) Basophils (%) (Auto) 0.3% (0-3) Sodium Level 142mEq/L (134-144) Potassium Level 4.0mEq/L (3.5-5.2) Chloride Level 106mEq/L (97-108) Carbon Dioxide Level 24mmol/L (18-29) Blood Urea Nitrogen 10mg/dL (8-27) Creatinine 0.82mg/dL (0.76-1.27) Estimat Glomerular Filtration Rate 97mL/min (>59) Glucose Level 112mg/dL (60-99) Calcium Level 8.2mg/dL (8.5-10.1) Total Bilirubin 0.5mg/dL (0.0-1.2) Aspartate Amino Transf (AST/SGOT) 18U/L (0-50) Alanine Aminotransferase (ALT/SGPT) 20U/L (0-44) Alkaline Phosphatase 67U/L (25-160) Total Protein 5.8g/dL (6.4-8.4) Albumin 3.3g/dL (3.4-5.0) Discharge Medications No Active Prescriptions or Reported Meds Followup Plan Disposition: home Discharge Diet: Low fat, Low Sodium, Heart Healthy Patient Instructions You were hospitalized with acute confusion, likely resulted from concussion secondary to fall. Work-ups in the hospital didn't show any evidence of stroke, seizure, bleeding, heart disease. You were monitored closely and mental status returned to normal. Please note that we arranged appointment with new doctor for follow up. Please follow up in 1week As we discussed, you were recommended to take aspirin and statin. Please have more discussion with future provider. Follow-up Provider: [facility] Follow-up with PCP in: 1 week Time spent 65min Kyle Ruiz MD Dec 10, 2016 15:00
== END 2016-12-10 14:35 | disposition home or self-care (01) ==
LOC: SED 10:21 → EDUNIT# 10:21 → EDBD 10:21 → MPC 12:21
PROVIDERS: ADMIT Internal Medicine; ATTEND Internal Medicine
DX: G93.40 Encephalopathy, unspecified (principal); G45.4 Transient global amnesia; S01.81XA Laceration without foreign body of other part of head, initial encounter; W18.30XA Fall on same level, unspecified, initial encounter; Y93.01 Activity, walking, marching and hiking; Y92.014 Private driveway to single-family (private) house as the place of occurrence of the external cause; R00.1 Bradycardia, unspecified; Z85.46 Personal history of malignant neoplasm of prostate; Z92.3 Personal history of irradiation
CPT/HCPCS: 12002; 36415; 70450; 70549; 70553; 71010; 72125; 80053; 80061; 81000; 82550; 83036; 84484; 85025; 85610; 85730; 87077; 87086; 87088; 87186; 92610; 93005; 94799; 96365; 97167; 99285; A9585; C8929; G0378; G0480; J0696; J7030